=== PATIENT | male | born 2000 | race Two or more races ===

== ENCOUNTER 2023-05-16 20:05 | Emergency (ER) | payer OTHER, MEDICAID ==
[~2023-05-16] VITALS: Ht 170.2 cm; Wt 52.0 kg
[2023-05-16] MEDS ORDERED: HYDROcodone-ACET 10/325MG TAB PO ONE (20:30)
[2023-05-16 21:32] VITALS: TEMP 98.4
[2023-05-16] MEDS ORDERED: IBUP-1454 PO (21:36)
[2023-05-16] MEDS ORDERED: ACE3T PO (21:37)
[2023-05-16 22:14] VITALS: BP 112/74; PULSE 69; RESP 16; O2SAT 98
== END 2023-05-16 22:15 | disposition home or self-care (01) ==
LOC: ER 20:05
DX: S86.912A Strain of unspecified muscle(s) and tendon(s) at lower leg level, left leg, initial encounter (principal); X50.1XXA Overexertion from prolonged static or awkward postures, initial encounter; Y93.89 Activity, other specified; Y92.89 Other specified places as the place of occurrence of the external cause; Y99.8 Other external cause status
CPT/HCPCS: 73562

== ENCOUNTER 2024-05-16 21:42 | Emergency (ER) | payer OTHER, MEDICAID ==
[~2024-05-16] VITALS: Ht 170.2 cm; Wt 48.7 kg
[~2024-05-16 21:42] MED LIST: ACE3T PO; IBUP-1454 PO
[2024-05-16 21:52] VITALS: BP 124/85; PULSE 70; RESP 16; TEMP 98.1; O2SAT 100
--- NOTE | 2024-05-16 22:18 | ED.PDOC ---
Eye-HPI HPI Comments This is a 24-year-old male presents to the ED chief complaint dental pain. Patient states on and off dental pain for the past 2 weeks has been trying to get into dental for resolution we will be schedule an appointment next week. Complains of a throbbing type pain to left lower back molar 9/10 on pain scale. Using [id number] Tylenol with little relief he states also has been using some amoxicillin which has not been helping. He has difficulty swallowing, fever, chills, shortness of breath, chest pain, injury. Chief Complaint: Tooth Pain Time Seen by MD: 21:48 Reviewed Notes: Nurses Notes, Medications, Allergies Allergies: Coded Allergies: NO KNOWN ALLERGIES (Unverified , 05/16/23) Home Meds Active Scripts Ibuprofen (Ibuprofen) 800 Mg Tab, 1 TAB PO TID PRN for 5 Days, #15 TAB Prov:TONI PABLO CLINICAL INFORMATICS PHYSICIAN 05/16/24 Amoxicillin & Pot Clavulanate (AUGMENTIN TABLET) 875 Mg Tb, 875 MG PO BID for 7 Days, #14 TAB Prov:TONI PABLO CLINICAL INFORMATICS PHYSICIAN 05/16/24 Acetaminophen W/ Codeine (Tylenol W/Cod #3) 1 Tab Tb, 1 TAB PO Q8HP PRN, #15 TAB Prov:SHIELA BARROW PAC 05/16/23 Ibuprofen (Ibuprofen) 600 Mg Tab, 1 TAB PO Q6HP PRN, #30 TAB Prov:SHIELA BARROW PAC 05/16/23 Information Source: Patient Mode of Arrival: Ambulatory Past Medical History PAST MEDICAL HISTORY: Denies Surgical History: Denies all surgeries Family History Family History: Reviewed,noncontributory to illness, No family hx of Cancer, No family hx of DM, No family hx of Heart keli, No family hx of HTN, No family hx ofKidney keli, No family hx of Liver keli, No family hx of Lung keli, No family hx of Stroke Social History Smoker: Non-Smoker Alcohol: Denies ETOH Use Drugs: Denies Drug Use Lives In: Home Constitutional: denies: chills, diaphoresis, fatigue, fever, malaise, sweats, weakness, others EENTM: reports: others (Dental pain); denies: blurred vision, double vision, ear bleeding, ear discharge, ear drainage, ear pain, ear ringing, eye pain, eye redness, hearing loss, mouth pain, mouth swelling, nasal discharge, nose bleeding, nose congestion, nose pain, photophobia, tearing, throat pain, throat swelling, voice changes Respiratory: denies: cough, hemoptysis, orthopnea, SOB at rest, shortness of breath, SOB with excertion, stridor, wheezing, others Cardiovascular: denies: chest pain, dizzy spells, diaphoresis, Dyspnea on exertion, edema, irregular heart beat, left arm pain, lightheadedness, palpitations, PND, syncope, others Gastrointestinal: denies: abdomen distended, abdominal pain, blood streaked bowels, constipated, diarrhea, dysphagia, difficulty swallowing, hematemesis, melena, nausea, poor appetite, poor fluid intake, rectal bleeding, rectal pain, vomiting, others Genitourinary: denies: burning, dysuria, flank pain, frequency, hematuria, incontinence, penile discharge, penile sore, pain, testicle pain, testicle swelling, urgency, others Neurological: denies: dizziness, fainting, headache, left sided numbness, left sided weakness, numbness, paresthesia, pre-existing deficit, right sided numbness, right sided weakness, seizure, speech problems, tingling, tremors, weakness, others Musculoskeletal: denies: back pain, gout, joint pain, joint swelling, muscle pain, muscle stiffness, neck pain, others Integumetry: denies: bruises, change in color, change in hair/nails, dryness, laceration, lesions, lumps, rash, wounds, others Allergic/Immunocompromised: denies: Difficulty Healing, Frequent Infections, Hives, Itching, others Hematologic/Lymphatic: denies: anemia, blood clots, easy bleeding, easy bruising, swollen glands, others Endocrine: denies: excessive hunger, excessive sweating, excessive thirst, excessive urination, flushing, intolerance to cold, intolerance to heat, unexplained weight gain, unexplained weight loss, others Psychiatric: denies: anxiety, bipolar disorder, depression, hopeless, panic disorder, schizophrenia, sleepless, suicidal, others Physical Exam General Appearance: No Apparent Distress, Normal HEENT: Pharynx Normal, Other (Molar number 38 with moderate decay surrounding erythema in trace edema no noted obvious abscess or drainage.) Neck: Full Range of Motion, Non-Tender, Normal, Normal Inspection Respiratory: Chest Non-Tender, Lungs Clear, No Accessory Muscle Use, No Respiratory Distress, Normal Breath Sounds Cardiovascular: No Edema, No JVD, No Murmur, No Gallop, Normal Peripheral Pulses, Regular Rate/Rhythm Breast Exam: Deferred Gastrointestinal: No Organomegaly, Non Tender, No Pulsatile Mass, Normal Bowel Sounds, Soft Genitalia: Deferred Pelvic: Deferred Rectal: Deferred Extremities: No calf tenderness, Normal capillary refill, Normal inspection, Normal range of motion, Non-tender, No pedal edema Musculoskeletal : Apperance: Normal Neurologic: Alert, steamfitter II-XII nml as Tested, No Motor Deficits, Normal Affect, Normal Mood, No Sensory Deficits Cerebellar Function: Normal Reflexes: Normal Skin: Dry, Normal Color, Warm Lymphatic: No Adenopathy Was a procedure done? Was a procedure done?: No EENT DIFF Eye: N/A Mouth: Other (dental infection) X-Ray, Labs, Meds, VS Vital Signs Date Time Temp Pulse Resp B/P (MAP) Pulse Ox O2 Delivery O2 Flow Rate FiO2 05/16/24 21:52 98.1 70 16 124/85 (98) 100 05/16/24 21:52 Room Air 05/16/24 21:52 98.1 70 16 124/85 (98) 100 98.1 Current Medications Medications (Trade) Dose Ordered Sig/Thang Route Start Time Stop Time Status Last Admin Ketorolac Tromethamine (Toradol Injection) 60 mg ONCE ONCE IM 05/16/24 22:30 05/16/24 22:31 DC 05/16/24 22:39 Acetaminophen/ Hydrocodone Bitart ([place] 5/325MG Tab) 1 tab ONCE ONCE PO 05/16/24 22:30 05/16/24 22:31 DC 05/16/24 22:39 X-Ray, Labs, Meds, VS Comment Infected tooth. Patient given Toradol 60 mg IM reports improvement in pain requesting discharge at this time. Script Augmentin twice daily x7 days. Script ibuprofen 800 mg 3 times daily. Advised to follow up with dental for resolution. ER return precautions given patient indicates understanding agrees with discharge plan of care. Time of 1ST Reevaluation: 22:33 Reevaluation 1ST: Improved Patient Education/Counseling: Diagnosis, Treatment, Prognosis, Need For Follow Up Family Education/Counseling: No Family Present Departure 1 Departure Time of Disposition: 22:33 Impression: Primary Impression: Dental infection Disposition: HOME / SELF CARE / HOMELESS Condition: Stable e-Prescriptions Ibuprofen (Ibuprofen) 800 Mg Tab 1 TAB PO TID PRN for 5 Days, #15 TAB Prov: TONI PABLO 05/16/24 Amoxicillin & Pot Clavulanate (AUGMENTIN TABLET) 875 Mg Tb 875 MG PO BID for 7 Days, #14 TAB Prov: TONI PABLO 05/16/24 Discharged With: Self Critical Care Note Critical Care Time?: No Stability Stability form required: No TONI PABLO May 16, 2024 22:18
[2024-05-16] MEDS ORDERED: AUG875T PO (22:35)
[2024-05-16] MEDS ORDERED: IBUP-1456 PO (22:35)
[2024-05-16] MEDS: HYDROcodone-ACET 5/325MG TAB PO ONE (22:39)
[2024-05-16] MEDS: KETOROLAC TROMETH 60MG/2ML VIAL IM ONE (22:39)
== END 2024-05-16 23:03 | disposition home or self-care (01) ==
LOC: ER 21:42
DX: K04.7 Periapical abscess without sinus (principal); Z79.1 Long term (current) use of non-steroidal anti-inflammatories (NSAID); Z79.2 Long term (current) use of antibiotics
CPT/HCPCS: 96372; 99283; J1885